=== PATIENT | male | born 1965 | race Caucasian/White ===

== ENCOUNTER → 2023-11-12 14:52 | Outpatient (REF) | payer BC, SELFPAY | LOC: HWEVLT 14:52 | PROVIDERS: ATTENDING PHYSICIAN Radiology Diagnostic Radiology | DX: I83.891 Varicose veins of right lower extremity with other complications (principal) | CPT/HCPCS: 93971 ==

== ENCOUNTER → 2023-12-10 09:30 | Outpatient (REF) | payer BC, SELFPAY | LOC: HWEVLT 09:30 | PROVIDERS: ATTENDING PHYSICIAN Radiology Vascular & Interventional Radiology | DX: I83.891 Varicose veins of right lower extremity with other complications (principal) | CPT/HCPCS: 36478 ==

== ENCOUNTER → 2023-12-26 11:28 | Outpatient (REF) | payer BC, SELFPAY | LOC: HWEVLT 11:28 | PROVIDERS: ATTENDING PHYSICIAN Radiology Vascular & Interventional Radiology | DX: I83.891 Varicose veins of right lower extremity with other complications (principal) | CPT/HCPCS: 93971 ==

== ENCOUNTER → 2024-01-01 07:46 | Outpatient (REF) | payer BC, SELFPAY | LOC: HWEVLT 07:46 | PROVIDERS: ATTENDING PHYSICIAN Radiology Vascular & Interventional Radiology | DX: I83.891 Varicose veins of right lower extremity with other complications (principal) | CPT/HCPCS: 36478 ==

== ENCOUNTER → 2024-01-02 06:43 | Outpatient (REF) | payer BC, SELFPAY | LOC: HWRAD 06:43 | PROVIDERS: ATTENDING PHYSICIAN Student in an Organized Health Care Education/Training Program; FAMILY PHYSICIAN Family Medicine | DX: R17 Unspecified jaundice (principal) | CPT/HCPCS: 76700 ==

== ENCOUNTER → 2024-01-15 13:14 | Outpatient (REF) | payer BC, SELFPAY | LOC: HWEVLT 13:14 | PROVIDERS: ATTENDING PHYSICIAN Radiology Vascular & Interventional Radiology | DX: I83.891 Varicose veins of right lower extremity with other complications (principal) | CPT/HCPCS: 93971 ==

== ENCOUNTER → 2024-04-27 06:29 | Outpatient (REF) | payer BC, SELFPAY | LOC: HWRAD 06:29 | PROVIDERS: ATTENDING PHYSICIAN Family Medicine | DX: M79.651 Pain in right thigh (principal) | CPT/HCPCS: 72110; 73502 ==